=== PATIENT | male | born 1945 | race Caucasian/White ===

== ENCOUNTER 2019-10-14 10:26 | Emergency (ER) | payer MEDICARE, MEDICAID ==
--- OUTSIDE RECORDS SUMMARY | 2019-10-14 10:55 | XMS REPORT | Summary of Care ---
:1945 Author Organization [facility] Address [address] [place] [address] Care Team Providers Name Role Phone Vicente Brooks MD Primary Care Provider Reason for Visit Reason Comments Pacemaker Check Follow-up Encounter Details Date Type Department Care Team Description 09/10/2019 Office Visit [facility] Catarino Roldan MD Sinus node dysfunction (Primary Dx); at [place] [address] [facility] Cardiac pacemaker in situ; [facility] [place] Essential hypertension [address] [facility] [place] 5th Floor 5th Floor, [address] [place] [address] [place], [place] [phone] [id number] [phone] Allergies No Known Allergiesdocumented as of this encounter (statuses as of 09/10/2019) Medications Medication Sig Dispensed Refills Start Date End Date Status VITAMIN D, Take 1,000 Units 0 Active CHOLECALCIFEROL, PO by mouth daily. aspirin 81 MG tablet Take 81 mg by 0 Active mouth daily. potassium chloride SA Take 2 tablets 180 tablet 3 02/23/2015 Active (K-DUR,KLOR-CON) 20 by mouth daily. MEQ tabletIndications: Hypertension metformin (GLUCOPHAGE) Take 1 tablet by 180 tablet 3 02/23/2015 Active 1000 MG mouth Two times tabletIndications: daily with Diabetes mellitus type meals. 2 in obese omeprazole (PRILOSEC) Take 1 capsule 180 capsule 3 02/23/2015 Active 20 MG by mouth Two capsuleIndications: Times Daily. Hypertension furosemide (LASIX) 80 Take 1 tablet by 90 tablet 3 02/23/2015 Active MG tabletIndications: mouth daily. Hypertension quinapril (ACCUPRIL) Take 1 tablet by 90 tablet 3 02/23/2015 Active 40 MG mouth daily. tabletIndications: Hypertension simvastatin (ZOCOR) 10 Take 1 tablet by 90 tablet 3 02/23/2015 Active MG tabletIndications: mouth daily. Hyperlipidemia meloxicam (MOBIC) 15 Take 15 mg by 0 Active MG tablet mouth daily. amlodipine (NORVASC) Take 10 mg by 0 Active 10 MG tablet mouth daily. sitagliptin (JANUVIA) Take 50 mg by 0 Active 50 MG tablet mouth daily mupirocin (BACTROBAN) Apply topically 22 g 3 02/15/2018 Active 2 % as needed ointmentIndications: Prurigo ammonium lactate Apply topically 400 g 6 02/15/2018 Active (LAC-HYDRIN) 12 % as needed for lotionIndications: Dry Skin Seborrheic dermatitis alclomethasone BID PRN 2 weeks 30 g 4 02/15/2018 Active (ACLOVATE) 0.05 % on and 2 weeks creamIndications: off Prurigo Additional information Patient not taking. Reported on 09/10/2019 9:22 AM ketoconazole (NIZORAL) 2 % Apply to affected 30 g 5 02/14/2019 02/13/2020 Active creamIndications: Seborrheic areas on the face and dermatitis outer ears prn for scaling and itching Triamcinolone Acetonide 0.1 Apply 1 Application 0 Active % External Cream (KENALOG) topically as needed documented as of this encounter (statuses as of 09/10/2019) Active Problems Problem Noted Date Stasis edema 05/23/2014 Overview: Chronic lower extremity stasis edema, likely from venous insufficiency. Contributed by Diastolic dysfunction as well. On lasix for >10 years Pt doesn't want to come off diuretics Diabetes mellitus type 2 in obese Obesity GERD (gastroesophageal reflux disease) Sinus node dysfunction documented as of this encounter (statuses as of 09/10/2019) Resolved Problems Problem Noted Date Resolved Date Sciatica 04/25/2015 01/15/2019 Degenerative arthritis of hip 04/25/2015 01/15/2019 Syncope 08/07/2014 02/23/2015 Healthcare maintenance 05/23/2014 01/15/2019 Overview: Review date 05/23/14. Note date (mm/yy) of order or completion, not result. NA= not applicable, P=ordered, result pending, D=declined, XX=not yet addressed MALE: Proxy XX. Vaccines: flu 2012, Tdap 2011, Pnvx 2011 (see Immunization History for others). Cancer screening: colon P, Other screening :HIV XX, LDL NA , DM NA, hep C NA. Routine health maintenance 05/10/2012 05/22/2013 Hypertensive heart disease with diastolic heart failure 01/15/2019 Overview: Echo 2012 shows impaired LV relaxation with concentric LVH Peripheral neuropathy 01/15/2019 H/O hemorrhoids 05/22/2013 Actinic keratosis 01/15/2019 Overview: Seen in derm clinic in past and prescribed plaquenil and keflex in the past Hereditary coproporphyria porphyria 01/15/2019 Overview: Followed by dermatology documented as of this encounter (statuses as of 09/10/2019) Immunizations Name Administration Dates Next Due Influenza Split 08/25/2014, 08/20/2013, 08/28/2012 Tdap 02/13/2012 Zoster (Shingles) Live (ZOSTAVAX) 08/28/2012 documented as of this encounter Social History Tobacco Use Types Packs/Day Years Used Date Former Smoker Cigarettes 2 20 Quit: 10/30/1984 Smokeless Tobacco: Never Used Alcohol Use Drinks/Week oz/Week Comments No 0 Standard drinks or equivalent 0.0 Sex Assigned at Date Recorded Not on file Job Start Date Occupation Industry Not on file Not on file Not on file Travel History Travel Start Travel End No recent travel history available. documented as of this encounter Last Filed Vital Signs Vital Sign Reading Time Taken Comments Blood Pressure 106/70 09/10/2019 9:15 AM EST Pulse 72 09/10/2019 9:15 AM EST Temperature - - Respiratory Rate - - Oxygen Saturation - - Inhaled Oxygen Concentration - - Weight 127 kg (280 lb) 09/10/2019 9:15 AM EST Height - - Body Mass Index 43.85 02/14/2019 8:29 AM EDT documented in this encounter Progress Notes Catarino Roldan MD - 09/10/2019 9:00 AM EST Subjective: Patient ID: Ravindra Mcbride is a 74 y.o. male. HPI Patient presents to the cardiac electrophysiology clinic for follow-up of 1. Sinus node dysfunction 2. Cardiac pacemaker in situ 3. Essential hypertension He repots he lost weight. He feels some imbalance sometimes. He has pacemaker in situ to prevent bradycardia. Patient denies palpitation, chest pain, orthopnea, PND, edema, syncope since last visit. He brought outside labs for review: LDL is at target. HbA1C 7.2% Ravindra has a past medical history of Degenerative arthritis of hip (04/25/2015) , Diabetes mellitus type 2 in obese, GERD (gastroesophageal reflux disease), H/ O hemorrhoids, Hereditary coproporphyria porphyria, Hypertension, Left upper extremity deep vein thrombosis (10/2014), Obesity, Peripheral neuropathy, Sciatica (04/25/2015), Sinus node dysfunction, Skin lesion, and Syncope (07/2014) . Ravindra has a past surgical history that includes Fracture surgery; pyondidal (1965); Tonsillec/Adenoidec; and pr ins new/rplcmt prm pm w/transv eltrd atrial& amp;vent (Left, 09/15/2014). Ravindra has a current medication list which includes the following prescription( s): amlodipine, ammonium lactate, aspirin, furosemide, ketoconazole, meloxicam, metformin, mupirocin, omeprazole, potassium chloride, quinapril, simvastatin, sitagliptin, triamcinolone, cholecalciferol, and alclomethasone. Ravindra has No Known Allergies. Review of Systems As per HPI. Negative for fever, chills, cough, abdominal pain, nausea, diarrhea , melena. The remainder of the complete ROS is negative. Objective: Blood pressure 106/70, pulse 72, weight 127 kg (280 lb). Physical Exam Constitutional: Appearance: He is well-developed. HENT: Head: Normocephalic. Eyes: General: No scleral icterus. Pupils: Pupils are equal, round, and reactive to light. Neck: Thyroid: No thyromegaly. Vascular: No JVD. Cardiovascular: Rate and Rhythm: Regular rhythm. Heart sounds: Murmur (MIGUEL at Ao with clear distinct S2) present. No friction rub. Pulmonary: Breath sounds: Normal breath sounds. Pacemaker interrogation and analysis: A complete pacemaker evaluation was performed during this encounter. Heel Blacker:MedtronicModel: Advisa Implant date:09/15/14 Indication for pacemaker:sinus node dysfunction Measurements Atrial sensinmV. Atrial threshold: 0.75V @ 0.4ms. Atrial lead impedance: 494ohms. R wave sensin.5mV. RV threshold: 1.25V @ 0.4ms.. RV lead impedance: 494ohms. Battery status:satisfactoryVoltage: 3.0 V. Pacemaker mode:AAI-DDD Not pacer dependent. Mode switches/Events:PAC, parox AT (minutes) Conclusions:normal pacemaker function Assessment: Sinus node dysfunction with pacemaker in situ. Normal device function as above. Continue current settings. PAT: minutes. Subclinical (device detected). Continue to monitor. Hypertension: well controlled. Continue current medical therapy. Follow-up in EP clinic in 4 months or sooner if clinically indicated. Plan: As above. documented in this encounter Plan of Treatment Date Type Specialty Care Team Description 01/14/2020 Office Visit Cardiology Catarino Roldan MD [address] [place] [address] 5th [place] [address] [phone] Health Maintenance Due Date Last Done Comments Diabetic Foot Exam 1961 Dilated Retinal Exam 1961 Hepatitis B Vaccines (1 of 1962 3 - Risk 3-dose series) Pneumococcal Vaccine: 65+ 2008 Years (1 of 2 - PCV13) DTaP,Tdap,and Td Vaccines 03/12/2012 02/13/2012 (2 - Td) MMR Vaccines (1 of 1 - 09/25/2012 Standard series) Zoster Vaccines (2 of 3) 10/23/2012 08/28/2012 Lipid Disorder Screening 08/15/2013 08/15/2012, 05/17/2011, 11/09/2010, Additional history exists Urine Microalbumin 04/09/2015 04/09/2014 Hemoglobin A1c 08/14/2015 02/12/2015, 11/11/2014, 04/09/2014, Additional history exists Influenza Vaccine 07/30/2019 08/25/2014, 08/20/2013, 08/28/2012 Varicella Vaccines Aged Out 08/28/2012 No longer eligible based on patient's age to complete this topic HIB Vaccines Aged Out No longer eligible based on patient's age to complete this topic Hepatitis A Vaccines Aged Out No longer eligible based on patient's age to complete this topic IPV Vaccines Aged Out No longer eligible based on patient's age to complete this topic Pneumococcal Vaccine: Aged Out No longer eligible Pediatrics (0 to 5 Years) based on patient's age and At-Risk Patients (6 to to complete this topic 64 Years) documented as of this encounter Implants Implanted Type Area Heel Blacker Device Shelf Model / Identifier Expiration Date Serial / Lot Lead Pacemaker Novus 5076-58. - [id number] [employer] 12/11/2015 5076-58 / Implanted: Qty: 1 on 09/15/2014 by Catarino Roldan MD at OR [facility] [id number] / Lead Pacemaker Novus 5076-52 - [id number] [employer] 05/08/2015 5076-52 / Implanted: Qty: 1 on 09/15/2014 by Catarino Roldan MD at [facility] [id number] / Pacemaker Advisa Dr Suraj Shah. - [id number] Left: [employer] 2014 [id number] / Implanted: Qty: 1 on 09/15/2014 by Catarino Roldan MD at [facility] Chest [id number] / Wall documented as of this encounter Results Not on filedocumented in this encounter Visit Diagnoses Diagnosis Sinus node dysfunction - Primary Sinoatrial node dysfunction Cardiac pacemaker in situ Essential hypertension Unspecified essential hypertension documented in this encounter
--- NOTE | 2019-10-14 11:38 | UC ---
Laceration HPI - HPI Summary HPI Summary: 74 year old male who, while he was reaching into his car trunk while it was automatically closing, caught his left ring finger on the edge of the trunk causing an approximately 0.75cm laceration to the tuft of his left ring finger. He did not pinch it in the closing trunk. - History Of Current Complaint Chief Complaint: UCUpperExtremity Stated Complaint: L FINGER LACERATION Time Seen by Provider: 10/14/19 11:19 Hx Obtained From: Patient Laceration Location: Finger Mechanism Of Injury: Sharp Trauma Onset/Duration: Sudden Onset Severity: Mild Pain Intensity: 0 Aggravating Factors: Nothing Related History: Dominant Hand Right - Allergies/Home Medications Allergies/Adverse Reactions: Allergies Allergy/AdvReac Type Severity Reaction Status Date / Time No Known Allergies Allergy Verified 10/14/19 11:06 Home Medications: Home Medications Aspirin EC TAB* [Ecotrin EC Low Dose 81 MG*] 81 mg PO DAILY 10/14/19 [History Confirmed 10/14/19] Meloxicam [Mobic] 15 mg PO DAILY 10/14/19 [History Confirmed 10/14/19] Sitagliptin Phosphate [Januvia] 50 mg PO DAILY 10/14/19 [History Confirmed 10/14] PMH/Surg Hx/FS Hx/Imm Hx Previously Healthy: Yes Endocrine History: Diabetes Cardiovascular History: Hypertension, Pacemaker/ICD GI/ History: Gastroesophageal Reflux - Surgical History Surgical History: Yes Surgery Procedure, Year, and Place: TONSILLECTOMY. PYLONIDIAL CYST TAILBONE. RT ANKLE FX WITH PLATE. PACEMAKER - Family History Known Family History: Positive: Non-Contributory - Social History Occupation: Retired Alcohol Use: None Substance Use Type: None Smoking Status (MU): Former Smoker When Did the Patient Quit Smoking/Using Tobacco: 1984 Review of Systems All Other Systems Reviewed And Are Negative: Yes Skin: Positive: Other - Patient has a laceration to the top of his left ring finger. Is Patient Immunocompromised?: No Physical Exam Triage Information Reviewed: Yes Appearance: Well-Appearing, No Pain Distress, Well-Nourished Vital Signs: Initial Vital Signs Temp 98.3 F 10/14/19 11:07 Pulse 79 10/14/19 11:07 Resp 20 10/14/19 11:07 BP 133/66 10/14/19 11:07 Pulse Ox 97 10/14/19 11:07 Vital Signs Reviewed: Yes Musculoskeletal Exam: Normal Musculoskeletal: Positive: Strength Intact, ROM Intact Neurological Exam: Normal Psychological Exam: Normal Skin: Positive: Other - Patient has a 0.75 cm laceration to the tuft of his left ring finger. Bleeding is controlled. Laceration Course/Dx - Course/Dx Course Of Treatment: At this point in time a bacitracin dressing is going to be applied at least keep that on for 24 hours. He can then change it and put only a Band-Aid. He is to watch for signs of infection which were reviewed with the patient. His tetanus was in 2011 and he prefers not to update that today. He is to follow- up with his primary care provider in 2 or 3 days for a recheck. - Diagnosis Provider Diagnosis: Laceration of left ring finger Discharge ED - Sign-Out/Discharge Documenting (check all that apply): Patient Departure All imaging exams completed and their final reports reviewed: No Studies - Discharge Plan Condition: Fair Disposition: HOME Patient Education Materials: Finger Laceration (ED) Referrals: Estevan REYES,Carmelina Lara [Primary Care Provider] - Additional Instructions: Change the dressing tomorrow afternoon, then you may apply a Band-Aid with some antibiotic ointment daily. Watch for signs of infection such as hot, red, tender, pus drainage or red streaks. Follow-up with your primary care provider for recheck as needed. - Billing Disposition and Condition Condition: FAIR Disposition: Home
== END 2019-10-14 11:50 | disposition home or self-care (01) ==
LOC: UCCORT 10:26
DX: S61.215A Laceration without foreign body of left ring finger without damage to nail, initial encounter (principal); E11.9 Type 2 diabetes mellitus without complications; I10 Essential (primary) hypertension; Z95.0 Presence of cardiac pacemaker; Z79.84 Long term (current) use of oral hypoglycemic drugs; Z87.891 Personal history of nicotine dependence; W23.0XXA Caught, crushed, jammed, or pinched between moving objects, initial encounter; Y92.810 Car as the place of occurrence of the external cause
CPT/HCPCS: 99202; G0463